=== PATIENT | female | born 1995 | race Caucasian/White ===

== ENCOUNTER 2017-01-03 13:12 | Emergency (ER) | payer OTHER ==
[2017-01-03] MEDS ORDERED: NS 0.9% 1000 ML* 1,000 ML IV ONE (13:50)
[2017-01-03 14:02] LABS: Hematocrit 35 % (35-47); Hemoglobin 11.2 g/dl (12.0-16.0); Mean Corpuscular HGB Conc 32 g/dl (31-36); Mean Corpuscular Hemoglobin 23 pg (27-31); Mean Corpuscular Volume 72 fL (80-97); Mean Platelet Volume 8 um3 (7.4-10.4); Red Blood Count 4.93 10^6/ul (4.0-5.4); Red Cell Distribution Width 16 % (10.5-15); White Blood Count 7.7 10^3/ul (3.5-10.8)
[2017-01-03 14:03] LABS: Comments Flag Yes
[2017-01-03 14:14] LABS: Albumin 4.9 g/dL (3.2-5.2); BUN/Creatinine Ratio 14.1 (8-20); C Reactive Protein 4.9 mg/L (< 5.00); Potassium 3.4 mmol/L (3.5-5.0); Total Bilirubin 0.3 mg/dL (0.2-1.0); Total Protein 8.9 g/dL (6.4-8.9)
[2017-01-03 14:22] LABS: Urine Bacteria 1+ (Absent); Urine Bilirubin Negative (Negative); Urine Glucose Negative (Negative); Urine Nitrite Negative (Negative)
[2017-01-03 14:54] LABS: Manual Entry Verification AS; UR Preg Internal Control QC Line Present; UR Preg Kit Lot# 6030156
[2017-01-03] MEDS ORDERED: Iohexol 300* (CONTRAST) 10 ML SDV IV ONE (15:17)
--- NOTE | 2017-01-03 16:30 | RAD ---
INDICATION: Left upper quadrant pain COMPARISON: None TECHNIQUE: Axial source images were obtained from the hemidiaphragms to the symphysis pubis following administration of oral and intravenous contrast. 85 mL Omnipaque 300 was utilized. Coronal and sagittal reconstructed images were acquired. Lung bases: The lung bases are clear. Liver: The liver is normal in size. There are no masses. There is no ductal dilatation. Gallbladder: There are no calcified gallstones. There is no evidence of wall thickening or pericholecystic fluid. Spleen: The spleen is normal in size. There are no masses. Pancreas: There is no focal pancreatic mass or ductal dilatation. Adrenal glands: There is no evidence of adrenal mass. Kidneys: The kidneys are normal in size and position. There are prompt nephrograms and there is prompt excretion bilaterally. There are no renal parenchymal masses. There is no evidence of nephrolithiasis. Adenopathy: There is no evidence of adenopathy by size criteria. Fluid collections: There are no free or localized fluid collections. Vessels:There are no significant atherosclerotic changes involving the aorta. There is no focal aneurysm. The iliac vessels are normal in caliber. The IVC appears normal. GI tract: There is moderate stool right colon. There is mild gaseous distention of the colon at the level of the splenic flexure with mildly prominent small bowel loops throughout with minimal mucosal thickening. These loops exerting mild mass effect upon the descending colon which is narrowed at this level and then returns to normal caliber near the descending colon-sigmoid colon junction. This could be related to enteritis or perhaps a localized ileus. Suggest follow-up plain radiographs. There are no additional bowel abnormalities. Pelvic organs: The uterus and adnexa appear normal Bladder: There are no bladder masses. Abdominal and pelvic soft tissues: The extraperitoneal abdominal and pelvic soft tissues appear normal.. Osseous structures: There are no acute osseous findings. Other: None IMPRESSION: UNUSUAL BOWEL GAS PATTERN IN THE LEFT UPPER QUADRANT WITH SEVERAL ONLY PROMINENT LOOPS OF SMALL BOWEL PERHAPS WITH MILD BOWEL WALL THICKENING. SUGGEST FOLLOW-UP
[2017-01-03] MEDS ORDERED: Acetaminophen TAB* 325 MG PO ONE (17:28)
--- NOTE | 2017-01-03 22:54 | ED ---
Justin Salazar Erika, scribed for Paxton Dowling MD on 01/03/17 at 1400 . Abdominal Pain/Female - HPI Summary HPI Summary: Patient is a 21-year-old female presenting to the ED with a CC of LUQ abdominal pain starting at 09:30 today. She denies trauma. Pain was not alleviated by PO intake or Tums, but is slightly alleviated by holding her breath. She notes slight nausea, but denies fevers, SOB, vomiting, and diarrhea. Pt states she has a daily BM and they have been normal. She denies similar pain in the past. Pt does note that she was in [place] 2 weeks ago. LNMP 3 weeks ago and pt takes oral contraceptives. Hx exercise-induced asthma, anxiety. Denies Hx thyroid disease. Denies Hx abdominal surgery. Patient does not smoke. - History of Current Complaint Chief Complaint: EDAbdPain Stated Complaint: UPPER ABD PAIN Time Seen by Provider: 01/03/17 13:26 Hx Obtained From: Patient Onset/Duration: Lasting Hours, Still Present Timing: Constant Severity Currently: Moderate Pain Intensity: 5 Pain Scale Used: 0-10 Numeric Location: Discrete At: LUQ Aggravating Factor(s): Other: - Palpation Alleviating Factor(s): Other: - Holding her breath Associated Signs and Symptoms: Positive: Nausea. Negative: Fever, Vomiting, Diarrhea Allergies/Adverse Reactions: Allergies Allergy/AdvReac Type Severity Reaction Status Date / Time No Known Allergies Allergy Verified 01/03/17 14:47 Home Medications: Home Medications NK [No Home Medications Reported] 01/03/17 [History Confirmed 01/03/17] PMH/Surg Hx/FS Hx/Imm Hx Respiratory History: Reports: Hx Asthma - exercise-induced Psychiatric History: Reports: Hx Anxiety Infectious Disease History: No Infectious Disease History: Denies: Traveled Outside the [place] in Last 30 Days - [place] - Family History Known Family History: Positive: Hypertension, Other - Gallbladder disease - Social History Occupation: Student Lives: With Family Alcohol Use: Occasionally Hx Substance Use: No Substance Use Type: Reports: None Hx Tobacco Use: No Smoking Status (MU): Never Smoked Tobacco Review of Systems Negative: Fever Negative: Shortness Of Breath Positive: Abdominal Pain - LUQ, Nausea. Negative: Vomiting, Diarrhea All Other Systems Reviewed And Are Negative: Yes Physical Exam Triage Information Reviewed: Yes Vital Signs On Initial Exam: Initial Vitals Temp Pulse Resp BP Pulse Ox 97.7 F 74 20 123/85 100 01/03/17 13:18 01/03/17 13:18 01/03/17 13:18 01/03/17 13:18 01/03/17 13:18 Vital Signs Reviewed: Yes Appearance: Positive: Well-Appearing, No Pain Distress, Well-Nourished Skin: Positive: Warm, Skin Color Reflects Adequate Perfusion, Soft Head/Face: Positive: Normal Head/Face Inspection Eyes: Positive: EOMI, AARTI, Conjunctiva Clear ENT: Positive: Pharynx normal, TMs normal Neck: Positive: Supple, Nontender Respiratory/Lung Sounds: Positive: Clear to Auscultation, Breath Sounds Present. Negative: Rales, Rhonchi, Wheezes Cardiovascular: Positive: RRR, Pulses are Symmetrical in both Upper and Lower Extremities. Negative: Murmur, Rub Abdomen Description: Positive: No Organomegaly, Soft, Guarding - Voluntary guarding, Other: - Tender LUQ. No rebound. Negative: CVA Tenderness (R), CVA Tenderness (L), Distended Bowel Sounds: Positive: Present Musculoskeletal: Positive: Strength/ROM Intact Neurological: Positive: Sensory/Motor Intact, Alert, Oriented to Person Place, Time, Normal Gait. Negative: Cerebellar Dysfunction Psychiatric: Positive: Affect/Mood Appropriate - [place] Coma Scale Coma Scale Total: 15 Diagnostics - Vital Signs Vital Signs Temp Pulse Resp BP Pulse Ox 01/03/17 13:37 89 100 01/03/17 13:36 147/101 01/03/17 13:28 98.9 F 76 16 135/91 100 01/03/17 13:18 97.7 F 74 20 123/85 100 - Laboratory Lab Results: Lab Results 01/03/17 01/03/17 01/03/17 Range/Units 13:35 13:45 13:45 WBC 7.7 (3.5-10.8) 10^3/ul RBC 4.93 (4.0-5.4) 10^6/ul Hgb 11.2 L (12.0-16.0) g/dl Hct 35 (35-47) % MCV 72 L (80-97) fL MCH 23 L (27-31) pg MCHC 32 (31-36) g/dl RDW 16 H (10.5-15) % Plt Count 316 (150-450) 10^3/ul MPV 8 (7.4-10.4) um3 INR (Anticoag Therapy) 0.84 L (0.89-1.11) Sodium (133-145) mmol/L Potassium (3.5-5.0) mmol/L Chloride (101-111) mmol/L Carbon Dioxide (22-32) mmol/L Anion Gap (2-11) mmol/L BUN (6-24) mg/dL Creatinine (0.51-0.95) mg/dL Est GFR ( Amer) (>60) Est GFR (Non-Af Amer) (>60) BUN/Creatinine Ratio (8-20) Glucose (70-100) mg/dL Lactic Acid (0.5-2.0) mmol/L Calcium (8.6-10.3) mg/dL Total Bilirubin (0.2-1.0) mg/dL AST (13-39) U/L ALT (7-52) U/L Alkaline Phosphatase (34-104) U/L C-Reactive Protein (< 5.00) mg/L Total Protein (6.4-8.9) g/dL Albumin (3.2-5.2) g/dL Globulin (2-4) g/dL Albumin/Globulin Ratio (1-3) Lipase (11.0-82.0) U/L Urine Color Yellow Urine Appearance Clear Urine pH 5.0 (5-9) Ur Specific [place] 1.012 (1.010-1.030) Urine Protein Negative (Negative) Urine Ketones Negative (Negative) Urine Blood Negative (Negative) Urine Nitrate Negative (Negative) Urine Bilirubin Negative (Negative) Urine Urobilinogen Negative (Negative) Ur Leukocyte Esterase Trace H (Negative) Urine WBC (Auto) Trace(0-5/hpf) (Absent) Urine RBC (Auto) Absent (Absent) Ur Squamous Epith Cells Present H (Absent) Urine Bacteria 1+ H (Absent) Urine Glucose Negative (Negative) Urine Test Negative (Negative) 01/03/17 01/03/17 Range/Units 13:45 13:45 WBC (3.5-10.8) 10^3/ul RBC (4.0-5.4) 10^6/ul Hgb (12.0-16.0) g/dl Hct (35-47) % MCV (80-97) fL MCH (27-31) pg MCHC (31-36) g/dl RDW (10.5-15) % Plt Count (150-450) 10^3/ul MPV (7.4-10.4) um3 INR (Anticoag Therapy) (0.89-1.11) Sodium 135 (133-145) mmol/L Potassium 3.4 L (3.5-5.0) mmol/L Chloride 101 (101-111) mmol/L Carbon Dioxide 26 (22-32) mmol/L Anion Gap 8 (2-11) mmol/L BUN 10 (6-24) mg/dL Creatinine 0.71 (0.51-0.95) mg/dL Est GFR ( Amer) 135.0 (>60) Est GFR (Non-Af Amer) 105.0 (>60) BUN/Creatinine Ratio 14.1 (8-20) Glucose 90 (70-100) mg/dL Lactic Acid 1.1 (0.5-2.0) mmol/L Calcium 10.0 (8.6-10.3) mg/dL Total Bilirubin 0.30 (0.2-1.0) mg/dL AST 16 (13-39) U/L ALT 12 (7-52) U/L Alkaline Phosphatase 54 (34-104) U/L C-Reactive Protein 4.90 (< 5.00) mg/L Total Protein 8.9 (6.4-8.9) g/dL Albumin 4.9 (3.2-5.2) g/dL Globulin 4.0 (2-4) g/dL Albumin/Globulin Ratio 1.2 (1-3) Lipase 20 (11.0-82.0) U/L Urine Color Urine Appearance Urine pH (5-9) Ur Specific [place] (1.010-1.030) Urine Protein (Negative) Urine Ketones (Negative) Urine Blood (Negative) Urine Nitrate (Negative) Urine Bilirubin (Negative) Urine Urobilinogen (Negative) Ur Leukocyte Esterase (Negative) Urine WBC (Auto) (Absent) Urine RBC (Auto) (Absent) Ur Squamous Epith Cells (Absent) Urine Bacteria (Absent) Urine Glucose (Negative) Urine Test (Negative) Result Diagrams: 01/03/17 13:45 01/03/17 13:45 Lab Statement: Any lab studies that have been ordered have been reviewed, and results considered in the medical decision making process. - CT CT A/P W/ CT Interpretation Completed By: Radiologist - IMPRESSION: UNUSUAL BOWEL GAS PATTERN IN THE LEFT UPPER QUADRANT WITH SEVERAL ONLY PROMINENT LOOPS OF SMALL BOWEL PERHAPS WITH MILD BOWEL WALL THICKENING. SUGGEST FOLLOW-UP Re-Evaluation - Re-Evaluation First Eval Re-Evaluation Time: 15:47 Change: Unchanged Comment: Patient is still in pain. She is awaiting CT scan. She declines pain medication Second Eval Re-Evaluation Time: 17:26 Change: Improved Comment: Discussed CT results. Patient is somewhat improved. Patient will be given Tylenol and be discharged. Abdominal Pain Fem Course/Dx - Course Course Of Treatment: A 21 y/o F presents to the ED with a CC of LUQ pain. CT A/ P W/ shows unusual bowel gas pattern in the left upper quadrant with several only prominent loops of small bowel perhaps with mild bowel wall thickening. Pt was given IV fluids and Pepcid in the ED. Patient first declined pain medication in the ED course, but was given Tylenol at discharge. She will be discharged home with follow up from GI. - Diagnoses Provider Diagnoses: Abdominal pain Discharge - Discharge Plan Condition: Stable Disposition: HOME Patient Education Materials: Abdominal Pain (ED) Referrals: [facility] YARITZA Rios [Primary Care Provider] - Frank Reeves MD [Medical Doctor] - Additional Instructions: Please follow up with GI. The documentation as recorded by the Justin rodriguez Erika accurately reflects the service I personally performed and the decisions made by , Paxton Dowling MD.
== END 2017-01-03 17:37 | disposition home or self-care (01) ==
LOC: ED 13:12
DX: R10.12 Left upper quadrant pain (principal); F41.9 Anxiety disorder, unspecified; J45.990 Exercise induced bronchospasm
CPT/HCPCS: 36415; 74177; 80053; 81003; 81015; 81025; 83605; 83690; 85027; 85610; 86140; 87086; 96360; 99283; A9270-GY; Q9967